=== PATIENT | male | born 1975 | race Hispanic/Latino ===

== ENCOUNTER 2025-05-05 13:14 | Emergency (ER) | payer OTHER, MEDICARE ==
[~2025-05-05] VITALS: Ht 180.3 cm; Wt 90.7 kg
--- NOTE | 2025-05-05 13:20 | NUR ---
Humza prasad in ED - 05/05/25 at 1419 by [email or web address] PATIENT TAKEN TO CT BY ARIELLA SPENCER.
--- NOTE | 2025-05-05 13:29 | NUR ---
PATIENT TAKEN TO CT BY PRIMARY RN AT THIS TIME./MAC
--- NOTE | 2025-05-05 13:35 | NUR ---
PATIENT RETURNED FROM CT.
--- NOTE | 2025-05-05 13:43 | EKG ---
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
[2025-05-05 13:49] LABS: IMMATURE GRANULOCYTE ABSOLUTE 0.03 K/uL (0-1); NUCLEATED RED BLOOD CELLS 0.0 % (0.0-0.19); PLATELET COUNT (AUTO) 164 K/uL (130-400); RED BLOOD CELL COUNT(AUTO) 5.27 MIL/uL (4.50-6.20); RED CELL DISTRIBUTION WIDTH 13.5 % (11.0-15.5); WHITE BLOOD COUNT (AUTO) 7.3 K/uL (4.8-10.8)
--- NOTE | 2025-05-05 13:49 | ERN ---
ED Note History of Present Illness Stated Complaint: AMS Chief Complaint: Altered Mental Status Time Seen by MD: 13:25 Time Seen by Midlevel: 13:25 Dictation: The patient is a 49-year old male with history of DM and brain tumor with surgery done in 2006 at [facility] who presents to the emergency department with father with complains of altered mental status. As per patients father he picked him up today and reported he was confused. Spoke to patients sister who saw patient yesterday and reported that the symptoms started around 6:30pm. Reports that at baseline patient has left sided weakness and facial droop but is able to communicate slowly with some stuttering. Patient initially denies any trauma but then reported he fell into a wall injuring his head. Allergies: Coded Allergies: No Known Drug Allergies (Unverified Allergy, Unknown, 05/05/25) Past Medical History Past Medical History: Diabetes-Type II Surgical History: Other Surgical History Other: BRAIN TUMOR RN Note Reviewed/Agreed w/PFSH: Yes Review of System Dictation Constitutional: Negative for fever,chills, and weight loss Eyes: Negative for injury, pain,redness, and discharge ENT: Negative for injury,pain or swelling Cardiovascular: Negative for chest pain, palpitations, and edema Respiratory: Negative for shortness of breath, cough, and wheezing, Abdomen/GI: Negative for abdominal pain, nausea, vomiting, diarrhea, and constipation Back: Negative for injury and pain : Negative for injury, bleeding and discharge MS/Extremity: Negative for injury and deformity Skin: Negative for rash, and discoloration Neuro: Negative for headache, weakness, numbness, tingling, and seizure , positive for altered mental status Psych: Negative for suicide ideation, homicidal ideation, and hallucinations Initial Vital Sign VS Vital Signs Date Time Temp Pulse Resp B/P (MAP) Pulse Ox O2 Delivery O2 Flow Rate FiO2 05/05/25 13:17 97.9 107 16 132/91 97 Room Air 05/05/25 13:45 0 21 Physical Exam Dictation Vital Signs reviewed General Appearance: Alert, oriented, no acute distress, well developed, nourished. Head and Face: non-traumatic. Eyes: PERRL, pink conjunctivas, eyelid no trauma, anterior chamber with arcus senilis. Ears: Pinnas intact and no signs of trauma or erythema ear canals clear and no discharge TM no erythema Nose: No discharge, no bleeding. Oropharynx: Mouth normal, tongue pink. pharynx clear,no erythema, tonsils no exudates, no abscesses noted, mucous membrane moist Neck: Supple, non-tender, no thyromegaly, no masses, no JVD, no bruits Breast:Deferred Chest:No tenderness, no crepitus, no paradoxical movement, no retractions Lungs:Clear, well-ventilated, symmetric, no rales, no wheezing, no rhonchi, no stridor, good breath sounds bilaterally Heart: Regular rate, regular rhythm, no murmur, no gallops Vascular: no peripheral edema, Abdomen: Soft, positive bowel sounds, nondistended, no guarding, nontender, no rebound, no masses no hepatomegaly, no splenomegaly, no Hercules's sign, no hernias. Rectal: Deferred Genital: Deferred Neurological: slurred speech, left side weakness, sensory function intact, left side facial droop Musculoskeletal: Neck nontender, full range of motion, back nontender, full range of motion, Extremities: nontender, full range of motion Skin: Color pink, dry, no turgor, no rash, no lacerations, no abrasions, no contusions. Lymphatic: Deferred Results (Laboratory/Radiology) Laboratory/Radiology Laboratory Tests Test 05/05/25 13:28 05/05/25 13:36 05/05/25 15:42 Whole Blood Glucose 316 MG/DL (70-110) H White Blood Count 7.3 K/uL (4.8-10.8) Red Blood Count 5.27 MIL/uL (4.50-6.20) Hemoglobin 16.0 g/dL (14.0-18.0) Hematocrit 47.2 % (42-54) Mean Corpuscular Volume 89.6 fL (79-99) Mean Corpuscular Hemoglobin 30.4 pg (27.0-33.0) Mean Corpuscular Hemoglobin Concent 33.9 g/dL (32.0-36.0) Red Cell Distribution Width 13.5 % (11.0-15.5) Platelet Count 164 K/uL (130-400) Mean Platelet Volume 11.2 fL (7.5-10.5) H Immature Granulocyte % (Auto) 0.4 % (0-1) Neutrophils (%) (Auto) 74.9 % (40.0-77.0) Lymphocytes (%) (Auto) 18.7 % (21.0-51.0) L Monocytes (%) (Auto) 5.4 % (3.0-13.0) Eosinophils (%) (Auto) 0.3 % (0.0-8.0) Basophils (%) (Auto) 0.3 % (0.0-5.0) Neutrophils # (Auto) 5.5 K/uL (1.8-7.7) Lymphocytes # (Auto) 1.4 K/uL (1.0-4.8) Monocytes # (Auto) 0.4 K/uL (0.1-1.0) Eosinophils # (Auto) 0.02 K/uL (0.00-0.70) Basophils # (Auto) 0.02 K/uL (0.00-0.20) Absolute Immature Granulocyte (auto 0.03 K/uL (0-1) Nucleated Red Blood Cells 0.0 % (0.0-0.19) Prothrombin Time 12.0 SEC (9.6-11.6) H Prothromb Time International Ratio 1.15 (0.85-1.15) Activated Partial Thromboplast Time 27.8 SEC (26.3-35.5) Sodium Level 138 mmol/L (136-145) Potassium Level 3.5 mmol/L (3.5-5.1) Chloride Level 100 mmol/L (101-111) L Carbon Dioxide Level 27 mmol/L (21-32) Blood Urea Nitrogen 13 mg/dL (7-18) Creatinine 0.8 mg/dL (0.5-1.3) Glomerular Filtration Rate Calc 109 mL/min (>90) Random Glucose 295 mg/dL (70-105) H Total Calcium 9.1 mg/dL (8.5-10.1) Total Bilirubin 2.2 mg/dL (0.2-1.0) H Direct Bilirubin 0.4 mg/dL (0.0-0.3) H Aspartate Amino Transf (AST/SGOT) 16 U/L (10-37) Alanine Aminotransferase (ALT/SGPT) 19 U/L (12-78) Alkaline Phosphatase 92 U/L (50-136) Ammonia 13 umol/L (11-32) Total Creatine Kinase 24 U/L (21-232) Troponin I High Sensitivity 4 ng/L (4-75) Total Protein 7.5 g/dL (6.0-8.3) Albumin 3.9 g/dL (3.5-5.0) Serum Alcohol < 3 mg/dL (0-10) Urine Color LIGHT-YELLOW (YELLOW) Urine Appearance CLEAR (CLEAR) Urine pH 5.0 (5.0-8.0) Urine Specific [place] 1.044 (1.001-1.031) Urine Protein NEGATIVE mg/dL (NEGATIVE) Urine Glucose (UA) >=1000 mg/dL (NEGATIVE) H Urine Ketones 10 mg/dL (NEGATIVE) H Urine Occult Blood NEGATIVE (NEGATIVE) Urine Nitrate NEGATIVE (NEGATIVE) Urine Bilirubin NEGATIVE mg/dL (NEGATIVE) Urine Urobilinogen 0.2 mg/dL (0.2-1.0) Urine Leukocyte Esterase NEGATIVE Dora/uL Urine RBC 0-1 /HPF (0-1) Urine WBC None /HPF (0-1) Urine Squamous Epithelial Cells RARE /HPF (0-2) Urine Bacteria None /HPF (None Seen) Urine Opiates Screen NEGATIVE (NEGATIVE) Urine Barbiturates Screen NEGATIVE (NEGATIVE) Urine Phencyclidine Screen NEGATIVE (NEGATIVE) Urine Amphetamines Screen NEGATIVE (NEGATIVE) Urine Benzodiazepines Screen NEGATIVE (NEGATIVE) Urine Cocaine Screen NEGATIVE (NEGATIVE) Urine Marijuana (THC) Screen NEGATIVE (NEGATIVE) DICTATED BY: SEUN HURTADO Jr., MD DATE: 05/05/25 1523 ELECTRONICALLY SIGNED BY: DATE: Indication: AMS. Technique: Noncontrast axial CT of the head is obtained with coronal and sagittal reconstructions. Comparison: No pertinent prior similar studies have been submitted for comparison. Findings: HEALTH TECHNICIAN shunt catheter via left frontal haroon hole approach is noted. The ventriculostomy catheter is intact, crosses the midline and terminates in the right periventricular arreola radiata. The right lateral ventricle is pinched off and slitlike appearance of the frontal horn of left lateral ventricle is noted. Mixed attenuation subdural fluid is noted along the left frontoparietal convexity consistent with acute on chronic subdural hemorrhage. [id number] midline shift of 4 mm is noted. Rice-white matter differentiation is maintained. Suboccipital craniectomy is noted with encephalomalacia in the right cerebellar hemisphere. The orbits are unremarkable. The paranasal sinuses and the mastoid air cells are clear. Impression: Acute on chronic left frontoparietal subdural hemorrhage with mass effect and mild midline shift. HEALTH TECHNICIAN shunt catheter as described above. Please note the extra ventricular location of the tip of the ventriculostomy catheter. Appearance of the lateral ventricle suggesting possible over shunting. Please correlate with shunt pressures. Right suboccipital craniectomy with postsurgical changes. /[place] REASON: ams ORDERING PHYSICIAN: YOSELYN DUMONT PROCEDURE: CXR1VW - CHEST 1VW EXAM: CR Chest, 1 View. CLINICAL HISTORY: ams COMPARISON: None provided. FINDINGS: LUNGS: There is no mass, infiltrate, or acute pulmonary abnormality. PLEURAL SPACES: No evidence of pleural effusion or pneumothorax. MEDIASTINUM: Cardiac size and mediastinal contours within normal limits. BONES: No aggressive appearing osseous lesion seen. IMPRESSION: No acute cardiopulmonary pathology is evident. /[place] Labs Reviewed?: Yes EKG: (+) rhythm (Sinus rhythm) EKG Comment: Date:05/05/2025 Time:1334 Ventricular rate:91 LA interval:112 QRS duration:93 QT/QTc:353/435 EKG interpretation: Sinus rhythm Reviewed by ED Attending No STEMI ED Course ED Course Orders Procedure Category Date Status Time Nothing By Mouth DIET 05/05/25 Complete Lunch Cbc With Differential LAB 05/05/25 Complete 13:29 Ct Head/Brain W/O CT 05/05/25 Resulted Contrast 13:29 Chest 1vw RAD 05/05/25 Resulted 13:29 12 Lead Ekg Tracing- EKG 05/05/25 Complete Technical 13:29 Creatine Kinase, Total LAB 05/05/25 Complete 13:29 Troponin I High LAB 05/05/25 Complete Sensitivity 13:29 Urinalysis Profile LAB 05/05/25 Complete 13:29 Bedside Glucose CPOE 05/05/25 Transmitted Fingerstick 13:29 Neurological Vs Q4hrs JAVI 05/05/25 Transmitted 13:29 Vital Signs Per CPOE 05/05/25 Transmitted Routine 13:29 Cardiac Monitoring CPOE 05/05/25 Transmitted 13:29 Pulse Ox(Continuous) RT 05/05/25 Transmitted 13:29 Complete Nih Stroke CPOE 05/05/25 Transmitted Scale 13:29 Basic Metabolic Panel LAB 05/05/25 Complete 13:29 Ammonia LAB 05/05/25 Complete 13:29 Drug Screen Urine LAB 05/05/25 Complete 13:29 Pt And Ptt LAB 05/05/25 Complete 13:29 Hepatic Function Panel LAB 05/05/25 Complete 13:30 Alcohol, Blood LAB 05/05/25 Complete 13:30 Mannitol 25% 50ml PHA 05/05/25 Complete Vial (Mannitol 25% 50m 14:17 Mannitol 25% 50ml PHA 05/05/25 Complete Vial (Mannitol 25% 50m 14:30 Mannitol 20% 500ml PHA 05/05/25 Complete Bag (Osmitrol 20% 500 14:30 Current Medications Medications (Trade) Dose Ordered Sig/Edin Route PRN Reason Start Time Stop Time Status Last Admin Dose Admin Mannitol (Mannitol 25% 50ml Vial) 12.5 gm ONCE STAT IV 05/05/25 14:17 05/05/25 14:23 DC Mannitol (Mannitol 25% 50ml Vial) 25 gm ONCE IV 05/05/25 14:30 05/05/25 14:28 DC Mannitol (Osmitrol 20% 500ml Bag) 25 gm ONCE ONCE IV 05/05/25 14:30 05/05/25 14:31 DC 05/05/25 14:36 Vital Signs Date Time Temp Pulse Resp B/P (MAP) Pulse Ox O2 Delivery O2 Flow Rate FiO2 05/05/25 17:17 97.0 77 21 112/68 98 Room Air* 0 05/05/25 15:55 97.0 77 21 105/70 97 Room Air* 0 05/05/25 14:52 97.0 90 17 121/84 97 Room Air* 0 05/05/25 13:45 97.0 94 16 133/89 97 Room Air* 0 05/05/25 13:17 97.9 107 16 132/91 97 Room Air Medical Decision Making MDM MDM: The patient is a 49-year old male with history of DM and brain tumor with surgery done in 2006 at [facility] who presents to the emergency department with father with complains of altered mental status. As per patients father he picked him up today and reported he was confused. Spoke to patients sister who saw patient yesterday and reported that the symptoms started around 6:30pm. Reports that at baseline patient has left sided weakness and facial droop but is able to communicate slowly with some stuttering. Patient initially denies any trauma but then reported he fell into a wall injuring his head. Differential diagnosis: CVA, hypoglycemia, concussion, alcohol intoxication, electrolyte imbalance, drug abuse, intracerebral hemorrhage. Rationale: Tests considered and ordered secondary to shared decision making include: labs, ECG and radiology Previous outside records reviewed: Old ER visits. Risk of complication and/or morbidity or mortality of patient management: None Medications-Per medication reconciliation Need for hospitalization: Patient does meet criteria for hospitalization. Need for emergency major/minor surgery: No There are no social concerns with this patient. Prescription drug management Prescriptions will include symptomatic care Patient's prior external medical records from other ER visits were reviewed by me as indicated. Prior testing and results from previous visits were reviewed. Prior tests were taken into account with medical decision making and resource utilization, independent historian/historians were used to obtain complete medical history. I independently interpreted the test that were performed, results were reviewed by me and considered findings on radiology if ordered. Medical management and examination interpretation discussions were had by me with other qualified healthcare professionals as indicated for the patient's care. 49-year-old male with history of remote brain mass removed HEALTH TECHNICIAN shunt, presented with GCS 15, but change in mental status, CT scan revealed left-sided subdural hematoma with mild midline shift and mass effect, hemodynamically stable airway intact, no reversal agents consulted Neurosurgery transfer to [facility] y[facility] ear Critical Care Note Comment(s) Total critical care time was 33 minutes. Excluding time for procedures. Management of critically ill patient with concern for acute decompensation. Management included interpretation of laboratory values and imaging, hemodynamics, time for consultation with consultants and admitting physician. Stroke Patient?: Hemorrhagic NIH STROKE SCALE: NIH STROKE SCALE Response (Comments) Value Level of Consciousness Alert 0 Ask patient month and their age Both incorrect 2 Command to open eyes, make fist and let go Both incorrect 2 Best gaze (horizontal eye movement) Normal 0 Visual Field Testing No Visual Field Loss 0 Facial Paresis Partial Paralysis 2 Motor Function - Left Arm Normal 0 Motor Function - Right Arm Normal 0 Motor Function - Left Leg Some effort against grav. 2 Motor Function - Right Leg Some effort against grav. 2 Limb Ataxia No Ataxia 0 Sensory-pin prick to arms, legs, trunk and face Normal 0 Best Language (describe picture, name items and read) Severe Aphasia 2 Dysarthria (read several words) Unintelligible / Unable 2 Extinction and Inattention Normal 0 Total 14 DX & DISP Disposition: Transfer Decision to Admit Date: May 05, 2025 Decision to Admit Time: 16:00 Departure Impression: Primary Impression: Subdural hemorrhage Additional Impression: AMS (altered mental status) Condition: Stable I have examined patient, & reviewed all documents, & agreed W/ the Diagnosis, and Plan YOSELYN DUMONT May 05, 2025 13:49 BOBBI MIJARES MD May 05, 2025 17:04
--- NOTE | 2025-05-05 13:59 | HMCIMG ---
Indication: AMS. Technique: Noncontrast axial CT of the head is obtained with coronal and sagittal reconstructions. Comparison: No pertinent prior similar studies have been submitted for comparison. Findings: EDITOR SCHOOL PHOTOGRAPH shunt catheter via left frontal haroon hole approach is noted. The ventriculostomy catheter is intact, crosses the midline and terminates in the right periventricular arreola radiata. The right lateral ventricle is pinched off and slitlike appearance of the frontal horn of left lateral ventricle is noted. Mixed attenuation subdural fluid is noted along the left frontoparietal convexity consistent with acute on chronic subdural hemorrhage. [id number] midline shift of 4 mm is noted. Rice-white matter differentiation is maintained. Suboccipital craniectomy is noted with encephalomalacia in the right cerebellar hemisphere. The orbits are unremarkable. The paranasal sinuses and the mastoid air cells are clear. Impression: Acute on chronic left frontoparietal subdural hemorrhage with mass effect and mild midline shift. EDITOR SCHOOL PHOTOGRAPH shunt catheter as described above. Please note the extra ventricular location of the tip of the ventriculostomy catheter. Appearance of the lateral ventricle suggesting possible over shunting. Please correlate with shunt pressures. Right suboccipital craniectomy with postsurgical changes. /[place]
--- NOTE | 2025-05-05 14:00 | NUR ---
MODIFIED NIH OF 9 CALCULATED USING [email or web address] TOOL. PROGRAM CRASHES WHEN INTERACTED WITH.
[2025-05-05 14:07] LABS: INR 1.15 (0.85-1.15)
[2025-05-05 14:08] LABS: CREATININE 0.8 mg/dL (0.5-1.3); GLOMERULAR FILTR. RATE CALC 109.0 mL/min (>90); GLUCOSE,RANDOM 295.0 mg/dL (70-105); SODIUM SERUM 138.0 mmol/L (136-145); UREA NITROGEN, BLOOD 13.0 mg/dL (7-18)
[2025-05-05 14:11] LABS: ALCOHOL, BLOOD < 3 mg/dL (0-10); ASPARTATE AMINOTRANSFERASE 16 U/L (10-37); TOTAL PROTEIN, SERUM 7.5 g/dL (6.0-8.3)
[2025-05-05 14:13] LABS: CREATINE KINASE, TOTAL 24.0 U/L (21-232)
[2025-05-05] MEDS ORDERED: MANNITOL 25% 50ML VIAL IV SCH (14:30)
[2025-05-05] MEDS: MANNITOL 20% 500 ML IV.SOLN IV ONE (14:36)
--- NOTE | 2025-05-05 14:40 | NUR ---
verbal order received to transfer patient to higher level of care for Trauma/Neurosurgery.
[2025-05-05] MEDS: MANNITOL 25% 50ML VIAL IV STA (14:50)
--- NOTE | 2025-05-05 15:02 | NUR ---
Transfer to [facility] Received a call from Adrianne intake nurse. patient accepted for transfer to [facility]. Accepting MD: Wen England
--- NOTE | 2025-05-05 15:21 | HMCIMG ---
EXAM: CR Chest, 1 View. CLINICAL HISTORY: ams COMPARISON: None provided. FINDINGS: LUNGS: There is no mass, infiltrate, or acute pulmonary abnormality. PLEURAL SPACES: No evidence of pleural effusion or pneumothorax. MEDIASTINUM: Cardiac size and mediastinal contours within normal limits. BONES: No aggressive appearing osseous lesion seen. IMPRESSION: No acute cardiopulmonary pathology is evident. /[place]
[2025-05-05 16:11] LABS: AMPHET/METH SCREEN,URINE NEGATIVE (NEGATIVE); BARBITURATE SCREEN, URINE NEGATIVE (NEGATIVE); CANNABINOID SCREEN,URINE NEGATIVE (NEGATIVE); COCAINE SCREEN,URINE NEGATIVE (NEGATIVE)
[2025-05-05 16:18] LABS: APPEARANCE,URINE CLEAR (CLEAR); GLUCOSE, URINE (UA) >=1000 mg/dL (NEGATIVE); LEUKOCYTE ESTERASE ,URINE NEGATIVE Leu/uL (NEGATIVE); NITRATE,URINE NEGATIVE (NEGATIVE); OCCULT BLOOD,URINE NEGATIVE (NEGATIVE)
[2025-05-05 16:19] LABS: ADD UA MICROSCOPIC YES
[2025-05-05 16:21] LABS: SQUAMOUS EPITHELIAL CELL,UR RARE /HPF (0-2)
--- NOTE | 2025-05-05 16:22 | NUR ---
REPORT GIVEN TO VERITO BRYAN RN AT [facility] EM[facility]ENC[facility] RO[facility].
--- NOTE | 2025-05-05 16:58 | NUR ---
SPOKE TO [facility]
--- NOTE | 2025-05-05 17:00 | NUR ---
[facility] AT BEDSIDE. REPORT GIVEN.
[2025-05-05 17:17] VITALS: BP 112/68; PULSE 77; RESP 21; TEMP 97; O2SAT 98
--- NOTE | 2025-05-05 17:17 | NUR ---
[facility] [place] TO TRANSPORT TO [facility].
== END 2025-05-05 17:18 | disposition short-term general hospital (02) ==
LOC: EDH 13:14
DX: I62.00 Nontraumatic subdural hemorrhage, unspecified (principal); R41.82 Altered mental status, unspecified; E11.9 Type 2 diabetes mellitus without complications; Z98.2 Presence of cerebrospinal fluid drainage device
CPT/HCPCS: 99291; 96374; 70450; 71045; 82550; 80076; 84484; 80048; 80305; 82140; 85025; 85610; 85730; 82948; 36415; 93005; 81001; J3490